=== PATIENT | male | born 1950 | race Caucasian/White ===

== ENCOUNTER 2017-06-29 10:15 | Inpatient (IN) | payer MEDICARE, OTHER, SELFPAY ==
[2017-06-14 11:34] VITALS: BP 124/73; PULSE 67; RESP 16; TEMP 36.4; O2SAT 95; BMI 36.0
--- NOTE | 2017-06-14 11:49 | SDCEKG_ITS ---
Test Reason : Blood Pressure : / mmHG Vent. Rate : 065 BPM Atrial Rate : 065 BPM P-R Int : 154 ms QRS Dur : 100 ms QT Int : 392 ms P-R-T Axes : 015 -09 039 degrees QTc Int : 407 ms Normal sinus rhythm Normal ECG Confirmed by ALLAN HOOVER, MANNY ([id number]), business editor JULIETA DENG ([id number] on 06/15/2017 10:50:53 AM Referred By: Noah Lynn Confirmed By:MANNY LEMUS MD
[2017-06-14 12:20] LABS: Absolute Neutrophil Count 4.9 X10^3/uL (2.0-7.7); Basophil# 0.04 X10^3/uL; Basophil% 0.5 % (0-1); Eosinophil# 0.21 X10^3/uL; Eosinophils% 2.6 % (0-5); Hematocrit 42.7 % (40-54); Hemoglobin 14.7 g/dl (13.0-16.5); Lymphocyte % 29.7 % (19-41); Mean Corp Hgb Conc 34.4 g/gl (32-36); Mean Corpuscular Hgb 31.4 pg (27.0-32.0); Mean Corpuscular Volume 91.2 fL (80-94); Mean Platelet Vol. 8.9 fl (6.2-12.0); Monocyte# 0.54 X10^3/uL; Monocyte% 6.7 % (0-10); Neutrophil # 4.86 X10^3/uL (2.7-7.7); Platelet Count 277 K/mm3 (150-450); Red Blood Count 4.68 M/mm3 (4.6-6.2); White Blood Count 8.1 K/mm3 (4.4-11.0)
[2017-06-14 12:24] LABS: POSITIVE COUNT NO; POSITIVE DIFFERENTIAL NO; POSITIVE MORPHOLOGY NO
[2017-06-14 12:34] LABS: Anion Gap 10 (5-15); BUN 21 mg/dL (7-18); BUN/Creat Ratio 18.8 RATIO (10-20); Calcium,Total 9.5 mg/dL (8.5-10.1); Chloride 104 mmol/L (98-107); Creatinine, Serum 1.12 mg/dL (0.70-1.30); EST Glomerular Filtration Rate 70 mL/min (>60); Est Glom Filt Rate - Afr Amer 84 mL/min (>60); Estimated Creatinine Clearance 65.76 ml/min; Glucose 152 mg/dL (70-110); Potassium 4.4 mmol/L (3.5-5.1); Sodium Level 139 mmol/L (136-145)
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
[2017-06-14 12:49] LABS: Hemoglobin A1c 6.7 % (4.2-6.3)
--- NOTE | 2017-06-23 11:03 | CASEMGMT ---
Social Work Note Placed call to the pt to discuss discharge plan. Introduced self and role at [facility]. The pt reports that he lives with his in a one-story home with 2 entry steps. DME consists of a walker and cane, and pt winkler snot anticipate additional DME needs. Intends on participating in outpatient therapy at [facility] and will have transportation. FARHANA CM to f/u with post-operatively. Plan: Outpatient therapy at [facility]. Krista Dhillon MSW COLLECTIONS AND ARCHIVES DIRECTOR
[2017-06-29] VITALS (9 sets, daily range): BP systolic 104–157; BP diastolic 43–76; PULSE 56–75; RESP 15–18; TEMP 35.9–37.1; O2SAT 93–99; BMI 36.0; BMI 36.4
[2017-06-29] MEDS: Celecoxib 200 MG Capsule 400 MG PO (11:01)
[2017-06-29] MEDS: Acetaminophen 500 MG Tablet 1000 MG PO ×3 (11:01→21:52)
[2017-06-29] MEDS: oxyCODONE HCl Cr 10 MG Tablet PO (11:01)
[2017-06-29 11:11] LABS: Bedside Glucose 168 mg/dL (70-110)
[2017-06-29] MEDS: Scopolamine 1mg/72hr Patch 1 PATCH TD (11:15)
[2017-06-29] MEDS: Cefazolin 2 GM in 0.9% Normal Saline 100 ML IV (11:42)
--- NOTE | 2017-06-29 11:47 | RAD_ITS ---
STUDY: X-RAY - PELVIS AND LEFT HIP REASON FOR EXAM: Male, 66 years old. Postop TECHNIQUE: Radiological exam, hip, unilateral, with pelvis when performed; 2 or 3 views. COMPARISON: None. FINDINGS: There is a new left hip arthroplasty with a satisfactory appearance. Normal appearance of the right hip arthroplasty. Normal visualized pelvis. IMPRESSION: Satisfactory appearance of a new left hip arthroplasty. Electronically Signed: Toni Michaels MD at 16:07 EST , Service support , RAD/Hip Min 2 Views (Portable)
--- NOTE | 2017-06-29 14:59 | OP.PCM_ITS ---
Report of Operation Date of Procedure: 06/29/17 Pre-Operative Diagnosis: Left hip posttraumatic osteoarthritis Post-Operative Diagnosis: Left hip posttraumatic osteoarthritis Surgery/Procedure Performed:: Left hip conversion of previous hip surgery to total hip arthroplasty Description of Surgical Findings:: Stable hip with equal leg lengths demolition expert: Duong Carvajal demolition expert: George Winter Type of Anesthesia:: Spinal Anesthesiologist: Rei Ni Special Medications: 2 g Ancef, 1 g TXA at incision, 1 g TXA closure, 10 mg Decadron, joint cocktail (5 mg Duramorph, 30 mL of 0.5% Ropivicaine, 1000 units of epinephrine, 30 mg of Toradol) Specimen's removed: Bony cuts Estimated Blood Loss (mL): 750 Fluids Replaced: 3 L crystalloid Description of Procedure: Findings: Adequate reduction with stability of the hip and equal leg lengths measured intraoperatively. Components used: 1. [place] secure fit advanced size 8 stem, 127 neck angle 2. [place] trident 56 mm acetabular shell 3. [place] MDM liner, alpha code F 4. [place] Biolox delta 28 mm, 4 mm neck femoral head 5. [place] X3 MDM liner Brief history operative indications: 66 male with previous history of left hip fracture fixed with plates and screws. Patient had subsequent leg length discrepancy and radiographs consistent with severe posttraumatic osteoarthritis with complete loss of joint space, subchondral sclerosis and large osteophyte formation. After failing conservative measures wished to proceed with left total hip replacement. risks and benefits were discussed with the patient which included but were not limited to blood loss, DVTs, PEs, infection, neurovascular damage, and dislocation. In light of all this patient did agree to proceed with a total hip arthroplasty. Procedure: On the date of procedure the patient's L hip was marked in the preoperative area. Patient was then taken back to the operating room where anesthesia assumed control of the C-spine and airway and administered anesthetic. Patient was transferred to the operating table and placed in the lateral decubitus position with the affected hip up. The patient was secured in the bed with the lateral positioners and leg lengths were checked. The L lower extremity was then prepped out in a sterile fashion using chlorhexidine while the surgeon scrubbed. Upon reentering the room the L lower extremity was draped in the standard orthopedic fashion and the incision was marked. A timeout was called and everyone agreed upon the side, the site, the procedure be performed, antibiotics given, and patient's identity. At this time incision was made through skin, subcutaneous tissue, and fat down to fascia. The fascia was then incised and a Charley retractor was placed. At this time we extended our excision distally in order to remove the hardware. The 2 screws were removed from the plate distal screw had broken off. We were unable to remove the lag screw so at this time we directed our attention towards the proximal femur. The soft tissue was then cleared from the posterior external rotators and the piriformis was identified. Piriformis was taken down. The remainder of the short external rotators were taken down. Capsulotomy was made and the posterior capsule was tagged. The retractors were then placed inside the capsule. The femoral neck was identified and a cleanup cut was made, and distal to the screw. We then used an osteotome to piecemeal the femoral head eventually removing the screw and head from the inside. At this time a bone tamp was used to back the lateral plate from the femoral neck. Attention was then directed towards the distal screw that had broken where trephine was used to clear the lateral bone and a conical screw removal tool was used to back the screw out. All hardware was now removed. At this time a power corkscrew was used to remove the femoral head. At this time all bony debris was removed from the acetabulum. Attention was then turned to the femur where the proximal femur was appropriately exposed using a manley retractor. The dry box operator was used to remove the lateral bone. Canal finder was used to verify the canal. Proximal femur was sequentially reamed to an 8 with conical reamers. The proximal femoral femur was then sequentially broached to a size 8 broach which had an appropriate fit. The broach was left in place. Our attention was then directed to the acetabulum and the anterior retractor was placed and a Gelpi was used to retract the posterior capsule superiorly. All soft tissue debris was removed from the pulvinar and labrum of the joint. The acetabulum was then sequentially reamed to 55 millimeters. At this time a and 56 mm [place] titanium cup was opened and impacted into place. Once it was securely fastened our attention was again turned towards the femur and the high offset neck was chosen and a 28 mm head with +4 mm offset was trialed. The hip was properly reduced using traction and external rotation. Stability was checked with the appropriate amount of shuck, no impingement with external rotation, and stable at 90? flexion and 45? internal rotation. Leg lengths were checked and were found to be equal on the table. Once the hip was determined to be stable the trial components were dislocated. And the acetabular component was finally get into place once it was securely fastened down the MDM liner was placed and security was verified. The proximal femur was again exposed and the components were removed from the wound. The final components were verified and opened. The wound was copiously irrigated out with normal saline. The acetabulum was checked for any residual debris. The final components were placed and impacted. Traction and external rotation were again used to reduce the hip. After adequate reduction the hip remained stable with appropriate leg lengths. The wound was then copiously irrigated with normal saline once more, and hemostasis was obtained. The posterior capsule and piriformis were repaired through drill holes to the greater trochanter . Closure was then done using #1 Vicryl to close the fascia. A 2-0 Vicryl interrupted sutures were used to close the subcutaneous skin. Skin hugo were used for final skin closure. A sterile dressing was placed. Patient was awakened by anesthesia and transferred to the [facility]. Patient was then transferred to the PACU for recovery. Postoperative plan: Patient will get 24 hours postop antibiotics. Patient will get in-house physical therapy and will be weight-bear as tolerated. Patient will follow up in office in 2 weeks for a wound check and x-rays. During the course of the procedure the physician assistant reading teacher played a vital role. His intimate knowledge of my steps in the procedure aided in safe and expedient completion of the procedure. The PA played a vital rolls in positioning particularly in obtaining the appropriate positioning of the sacral bump. The PA was also vital in the retraction of soft tissues during the exposure and especially the femoral work as this is a vital part of the procedure to prevent complications and fractures. The PA was also vital and protecting soft tissues during times of bony cuts and reaming. He also played a vital role in closure with my direct supervision. The PA was also important during reduction and dislocation of the joint and trials intraoperatively. Dr Winter assisted in this case for evaluated and educational purposes only. Grafts/Implants Used: [place] - Complications none - Admit VTE Documentation VTE Present on Admission: No VTE Mechan Device Prophylaxis: SCD's, Thigh High EMILY Mcwilliams VTE Pharm Prophylaxis ordered?: Yes
[2017-06-29] MEDS: Lactated Ringers 1,000 ML 125 ML IV (15:32)
[2017-06-29 16:11] LABS: Bedside Glucose 213 mg/dL (70-110)
--- NOTE | 2017-06-29 17:13 | PCA ---
BIBI/RN IN WITH PT
[2017-06-29] MEDS: metFORMIN HCl 1,000 MG Tablet 1000 MG PO (17:48)
[2017-06-29] MEDS: Glucerna Shake 120 ML LIQUID PO (17:48)
[2017-06-29] MEDS: Cefazolin 1 GM/50 ML BAG IV (20:50)
--- NOTE | 2017-06-29 21:09 | PCM.CONS.GEN ---
Problem List (1) Essential hypertension Status: Chronic (2) DM2 (diabetes mellitus, type 2) Status: Chronic Qualifiers: Diabetes mellitus complication status: without complication Diabetes mellitus halfway insulin use: without halfway use Qualified Code(s): E11.9 - Type 2 diabetes mellitus without complications (3) CAD (coronary artery disease) Status: Chronic Qualifiers: Coronary Disease-Associated Artery/Lesion type: [place] artery [place] vs. transplanted heart: [place] heart Associated angina: without angina Qualified Code(s): I25.10 - Atherosclerotic heart disease of [place] coronary artery without angina pectoris Reason for Consult Date of Consultation: 06/29/17 Reason for Consultation: Medical management. History of Present Illness: Patient is a 66 years old male, who underwent left total hip surgery on 06/29/17. He has history of coronary artery disease with history of myocardial infarction about 6 years ago, DM II, and essential hypertension. Other than expected discomfort from surgery, he has no complains. Past Medical History Past Medical History (Chronic Problems): Chronic Problems Essential hypertension (Chronic) DM2 (diabetes mellitus, type 2) (Chronic) CAD (coronary artery disease) (Chronic) Allergies niacin [From Niaspan Extended-Release] Adverse Reaction (Verified 06/14/17 11:01) red face disposable stitches Allergy (Uncoded 06/14/17 11:01) skin blisters and drainage altace Adverse Reaction (Uncoded 06/14/17 11:01) cough Home Medications: Ambulatory Orders Medication Instructions Recorded Aspirin E.C. [Ecotrin] 81 mg PO DAILY@0800 06/14/17 Cyanocobalamin/FA/Pyridoxine 1 each PO QHS 06/14/17 [Folgard] Dextroamphetamine/Amphetamine 15 mg PO TID 06/14/17 [Dextroamp-Amphetamin 15 mg Tab] Gabapentin [Neurontin] 600 mg PO QHS 06/14/17 Hydrocodone/Acetaminophen [[place] 1 each PO BID 06/14/17 5-325 Tablet] Losartan Potassium [Cozaar] 100 mg PO DAILY 06/14/17 Meloxicam [Mobic] 7.5 mg PO PRN PRN 06/14/17 Metformin HCl 1,000 mg PO BID 06/14/17 Metoprolol Tartrate [Lopressor 100 mg PO QHS 06/14/17 (Beta Adolph)] [place]-3S/Dha/Epa/Fish Oil [[place]-3 1 each PO BID 06/14/17 Fish Oil 1,200 mg Sfgl] Omeprazole 20 mg PO DAILY 06/14/17 Pioglitazone [Actos] 30 mg PO DAILY 06/14/17 Sertraline HCl [Zoloft] 100 mg PO QHS 06/14/17 Simvastatin [Zocor] 20 mg PO QHS 06/14/17 Smoking Status: Never smoker - *Family History Maternal History Items: No pertinent history Review of Systems Comment: ROS: In general: Patient has been in good health, denied of any constitutional symptoms, such as weight loss, or gain, fever, chills, or night sweats. Patient denied of any profound fatigue. HEENT: Unremarkable. Patient denied of any dizziness, chronic headache, blurred vision, double vision, dry mouth, or nasal congestion. CV/respiratory: There is no exertional shortness of breath, chest pain, palpitation, wheezing, cough, claudication, cold feet, or peripheral edema. GI: Patient denied any abdominal pain, nausea, vomiting, diarrhea, constipation, melena, or hematochezia. : Patient denied any significant urinary symptoms. Neurology: Unremarkable. There is no history of seizure as an adult. Psychological: Unremarkable. ?. Endocrine: Unremarkable. Musculoskeletal: Unremarkable. Objective: In general, patient is a well-nourished and developed adult. HEENT: Head is atraumatic, and normocephalic. Pupils are equal, round, and reactive to light and accommodations. Neck is supple. There is no lymphadenopathy, or thyromegaly. Oral mucosa is pink, and moist. There are no lesions. Heart: Auscultation is normal with regular rhythm and rate. There is no extra heart sounds, or murmurs. S1 and S2 are present. Point of maximal impulse is not displaced. Lungs: Lungs are clear to auscultation bilaterally. There is no wheezing, or crackles. Abdomen: Abdominal wall is non-tender, and non-distended. There is no palpable mass or organomegaly. Normoactive bowel sounds are present. Extremities: There is no cyanosis or clubbing. Peripheral pulses are palpable. There is no edema. Skin: There are no any skin discoloration or lesions. Neurological: CN II - XII are intact. Sensory and motor functions are grossly normal with no obvious deficit. Cerebellar functions are within normal range. Gait was not tested. - Physical Exam Vital Signs Temp Pulse Resp BP Pulse Ox 98.8 F 66 18 134/74 H 96 06/29/17 18:51 06/29/17 18:51 06/29/17 20:39 06/29/17 18:51 06/29/17 20:39 Oxygen Delivery Method Room Air Weight: 246 lb 14.684 oz Body Mass Index (BMI) 36.4 Finger Stick Blood Glucose 213 Intake and Output for Last 24 Hours 06/27/17 06/28/17 06/29/17 23:59 23:59 23:59 Intake Total 3800 / 3800 Balance 3800 / 3800 POC Glucose 06/29/17 06/29/17 16:03 10:49 POC Glucose 213 H 168 H Diagnostic Data Hip X-Ray 06/29/17 11:47 Assessment/Plan Patient is a 66 years old male, who underwent left total hip surgery on 06/29/17. He has history of coronary artery disease with history of myocardial infarction about 6 years ago, DM II, and essential hypertension. Other than expected discomfort from surgery, he has no complains. #1 DM II. Hold oral hypoglycemic agent, metformin and Acots during the hospital stay. Add sliding scale insulin. #2 Essential hypertension. Continue current medications. Blood pressure is adequate. #3 Coronary artery disease. He is asymptomatic. Continue current medications. He is allergic to aspirin. Thank you for consultation. We will follow with you. Code Visit Office Visits / Consults: [id number] IP Consult L2
--- NOTE | 2017-06-29 21:15 | CON.PCM_ITS ---
Problem List (1) Essential hypertension Status: Chronic (2) DM2 (diabetes mellitus, type 2) Status: Chronic Qualifiers: Diabetes mellitus complication status: without complication Diabetes mellitus detention insulin use: without long term care social worker use Qualified Code(s): E11.9 - Type 2 diabetes mellitus without complications (3) CAD (coronary artery disease) Status: Chronic Qualifiers: Coronary Disease-Associated Artery/Lesion type: [place] artery [place] vs. transplanted heart: [place] heart Associated angina: without angina Qualified Code(s): I25.10 - Atherosclerotic heart disease of [place] coronary artery without angina pectoris Reason for Consult Date of Consultation: 06/29/17 Reason for Consultation: Medical management. History of Present Illness: Patient is a 66 years old male, who underwent left total hip surgery on 06/29/17. He has history of coronary artery disease with history of myocardial infarction about 6 years ago, DM II, and essential hypertension. Other than expected discomfort from surgery, he has no complains. Past Medical History Past Medical History (Chronic Problems): Chronic Problems Essential hypertension (Chronic) DM2 (diabetes mellitus, type 2) (Chronic) CAD (coronary artery disease) (Chronic) Allergies niacin [From Niaspan Extended-Release] Adverse Reaction (Verified 06/14/17 11:01 ) red face disposable stitches Allergy (Uncoded 06/14/17 11:01) skin blisters and drainage altace Adverse Reaction (Uncoded 06/14/17 11:01) cough Home Medications: Ambulatory Orders Medication Instructions Recorded Aspirin E.C. [Ecotrin] 81 mg PO DAILY@0800 06/14/17 Cyanocobalamin/FA/Pyridoxine 1 each PO QHS 06/14/17 [Folgard] Dextroamphetamine/Amphetamine 15 mg PO TID 06/14/17 [Dextroamp-Amphetamin 15 mg Tab] Gabapentin [Neurontin] 600 mg PO QHS 06/14/17 Hydrocodone/Acetaminophen [[place] 1 each PO BID 06/14/17 5-325 Tablet] Losartan Potassium [Cozaar] 100 mg PO DAILY 06/14/17 Meloxicam [Mobic] 7.5 mg PO PRN PRN 06/14/17 Metformin HCl 1,000 mg PO BID 06/14/17 Metoprolol Tartrate [Lopressor 100 mg PO QHS 06/14/17 (Beta Adolph)] [place]-3S/Dha/Epa/Fish Oil [[place]-3 1 each PO BID 06/14/17 Fish Oil 1,200 mg Sfgl] Omeprazole 20 mg PO DAILY 06/14/17 Pioglitazone [Actos] 30 mg PO DAILY 06/14/17 Sertraline HCl [Zoloft] 100 mg PO QHS 06/14/17 Simvastatin [Zocor] 20 mg PO QHS 06/14/17 Smoking Status: Never smoker - *Family History Maternal History Items: No pertinent history Review of Systems Comment: ROS: In general: Patient has been in good health, denied of any constitutional symptoms, such as weight loss, or gain, fever, chills, or night sweats. Patient denied of any profound fatigue. HEENT: Unremarkable. Patient denied of any dizziness, chronic headache, blurred vision, double vision, dry mouth, or nasal congestion. CV/respiratory: There is no exertional shortness of breath, chest pain, palpitation, wheezing, cough, claudication, cold feet, or peripheral edema. GI: Patient denied any abdominal pain, nausea, vomiting, diarrhea, constipation, melena, or hematochezia. : Patient denied any significant urinary symptoms. Neurology: Unremarkable. There is no history of seizure as an adult. Psychological: Unremarkable. ?. Endocrine: Unremarkable. Musculoskeletal: Unremarkable. Objective: In general, patient is a well-nourished and developed adult. HEENT: Head is atraumatic, and normocephalic. Pupils are equal, round, and reactive to light and accommodations. Neck is supple. There is no lymphadenopathy, or thyromegaly. Oral mucosa is pink, and moist. There are no lesions. Heart: Auscultation is normal with regular rhythm and rate. There is no extra heart sounds, or murmurs. S1 and S2 are present. Point of maximal impulse is not displaced. Lungs: Lungs are clear to auscultation bilaterally. There is no wheezing, or crackles. Abdomen: Abdominal wall is non-tender, and non-distended. There is no palpable mass or organomegaly. Normoactive bowel sounds are present. Extremities: There is no cyanosis or clubbing. Peripheral pulses are palpable. There is no edema. Skin: There are no any skin discoloration or lesions. Neurological: CN II - XII are intact. Sensory and motor functions are grossly normal with no obvious deficit. Cerebellar functions are within normal range. Gait was not tested. - Physical Exam Vital Signs Temp Pulse Resp BP Pulse Ox 98.8 F 66 18 134/74 H 96 06/29/17 18:51 06/29/17 18:51 06/29/17 20:39 06/29/17 18:51 06/29/17 20:39 Oxygen Delivery Method Room Air Weight: 246 lb 14.684 oz Body Mass Index (BMI) 36.4 Finger Stick Blood Glucose 213 Intake and Output for Last 24 Hours 06/27/17 06/28/17 06/29/17 23:59 23:59 23:59 Intake Total 3800 / 3800 Balance 3800 / 3800 POC Glucose 06/29/17 06/29/17 16:03 10:49 POC Glucose 213 H 168 H Diagnostic Data Hip X-Ray 06/29/17 11:47 Assessment/Plan Patient is a 66 years old male, who underwent left total hip surgery on 06/29/17. He has history of coronary artery disease with history of myocardial infarction about 6 years ago, DM II, and essential hypertension. Other than expected discomfort from surgery, he has no complains. #1 DM II. Hold oral hypoglycemic agent, metformin and Acots during the hospital stay. Add sliding scale insulin. #2 Essential hypertension. Continue current medications. Blood pressure is adequate. #3 Coronary artery disease. He is asymptomatic. Continue current medications. He is allergic to aspirin. Thank you for consultation. We will follow with you. Code Visit Office Visits / Consults: [id number] IP Consult L2
[2017-06-29] MEDS: Ketorolac 15 MG/ML Vial IV (21:51)
[2017-06-29] MEDS: Senna/Docusate Sodium 1 Tablet 2 TABLET PO (21:51)
[2017-06-29] MEDS: Sertraline 100 MG Tablet PO (21:51)
[2017-06-29] MEDS: Gabapentin 300 MG Capsule 600 MG PO (21:52)
[2017-06-29] MEDS: Atorvastatin Calcium 10 MG Tablet PO (21:52)
[2017-06-29] MEDS: oxyCODONE 5 MG Tablet PO (21:52)
[2017-06-29 22:21] LABS: Bedside Glucose 217 mg/dL (70-110)
[2017-06-30] MEDS: Lactated Ringers 1,000 ML 125 ML IV (00:47)
[2017-06-30] MEDS: Cefazolin 1 GM/50 ML BAG IV (04:36)
[2017-06-30 04:59] VITALS: BP 140/73; PULSE 66; RESP 18; TEMP 36.6; O2SAT 98
[2017-06-30 05:34] LABS: Hematocrit 30.1 % (40-54); Hemoglobin 10.5 g/dl (13.0-16.5); Mean Corp Hgb Conc 34.9 g/gl (32-36); Mean Corpuscular Hgb 31.9 pg (27.0-32.0); Mean Corpuscular Volume 91.5 fL (80-94); Mean Platelet Vol. 8.7 fl (6.2-12.0); Platelet Count 276 K/mm3 (150-450); RBC Distribution Width CV 12.8 % (11.6-14.6); RBC Distribution Width SD 41.1 fl (35.1-43.9); Red Blood Count 3.29 M/mm3 (4.6-6.2); White Blood Count 13.9 K/mm3 (4.4-11.0)
[2017-06-30 05:36] LABS: Scan Indicated on CBC? Y/N NO
[2017-06-30 05:50] LABS: Anion Gap 9 (5-15); BUN 18 mg/dL (7-18); BUN/Creat Ratio 15.7 RATIO (10-20); Calcium,Total 8.4 mg/dL (8.5-10.1); Chloride 103 mmol/L (98-107); Creatinine, Serum 1.15 mg/dL (0.70-1.30); EST Glomerular Filtration Rate 68 mL/min (>60); Est Glom Filt Rate - Afr Amer 82 mL/min (>60); Estimated Creatinine Clearance 64.04 ml/min; Glucose 208 mg/dL (74-106); Potassium 4.2 mmol/L (3.5-5.1); Sodium Level 137 mmol/L (136-145)
--- NOTE | 2017-06-30 06:37 | PN.ORTHO_ITS ---
Subjective: The patient was sitting in bed upon examination. Patient denies any chest pain , shortness of breath, dizziness, lightheadedness, nausea or vomiting, or calf pain. No adverse overnight events. Patient does complain of pain in the left hip. Objective: Vital signs stable and afebrile. Patient is able to plantarflex and dorsiflex actively. Sensation is intact to light touch to saphenous, sural, superficial and deep peroneal, and tibial distribution. Dressing is clean dry and intact. There is some mild erythema to the distal one third posterior aspect of dressing on the left hip Negative Homans bilaterally, negative signs and symptoms of DVT. - Physical Exam General: Alert, Oriented x3, Cooperative, No apparent distress Vital Signs Temp Pulse Resp BP Pulse Ox 97.8 F 66 18 140/73 H 98 06/30/17 04:59 06/30/17 04:59 06/30/17 04:59 06/30/17 04:59 06/30/17 04:59 Oxygen Delivery Method Room Air Weight: 112 kg Body Mass Index (BMI) 36.4 Finger Stick Blood Glucose 213 Intake and Output for Last 24 Hours 06/28/17 06/29/17 06/30/17 23:59 23:59 23:59 Intake Total 3800 / 3800 1796 / 1796 Output Total 700 / 700 Balance 3800 / 3800 1096 / 1096 Laboratory Tests Past 24 Hrs 06/30/17 06/30/17 05:06 05:06 WBC 13.9 H RBC 3.29 L Hgb 10.5 L Hct 30.1 L MCV 91.5 MCH 31.9 MCHC 34.9 RDW 12.8 RDW Differential 41.1 Plt Count 276 MPV 8.7 Sodium 137 Potassium 4.2 Chloride 103 Carbon Dioxide 25.0 Anion Gap 9 BUN 18 Creatinine 1.15 Estim Creat Clear Calc 64.04 Est GFR (MDRD) Af Amer 82 Est GFR (MDRD) Non-Af 68 BUN/Creatinine Ratio 15.7 Glucose 208 H Calcium 8.4 L POC Glucose 06/29/17 06/29/17 06/29/17 21:50 16:03 10:49 POC Glucose 217 H 213 H 168 H Assessment/Plan 1. S/P left hip conversion of previous hip surgery to a left total hip arthroplasty POD #1 2. Continue Pain Medications: Tylenol and OxyIR 3. DVT Prophylaxis: Xarelto 4. PT/OT: Weightbearing as tolerated 5. H & H: 10.5/30.1, asymptomatic 6. Leukocytosis: Currently 13.9, afebrile. Patient did receive Decadron intraoperatively 7. Encouraged Incentive Spirometry 8. Disposition: Plan will be for discharge home tomorrow if patient tolerates physical therapy and pain is controlled.
[2017-06-30] MEDS: Acetaminophen 500 MG Tablet 1000 MG PO ×3 (06:49→21:26)
[2017-06-30 07:06] LABS: Bedside Glucose 182 mg/dL (70-110)
[2017-06-30 08:05] VITALS: BP 116/60; PULSE 69; RESP 16; TEMP 36.6; O2SAT 98
[2017-06-30] MEDS: oxyCODONE 5 MG Tablet PO ×2 (08:21→13:01)
[2017-06-30] MEDS: Famotidine 20 MG Tablet PO (08:21)
[2017-06-30] MEDS: Glucerna Shake 120 ML LIQUID PO ×3 (08:21→16:41)
[2017-06-30] MEDS: Pantoprazole Sodium 20 MG Tablet PO (08:21)
[2017-06-30] MEDS: Senna/Docusate Sodium 1 Tablet 2 TABLET PO ×2 (08:24→21:26)
--- NOTE | 2017-06-30 11:11 | PCA ---
jordon/rn in with pt
[2017-06-30 11:13] VITALS: BP 125/65; PULSE 79
[2017-06-30 11:16] LABS: Bedside Glucose 191 mg/dL (70-110)
--- NOTE | 2017-06-30 13:48 | CASEMGMT ---
FARHANA ENCARNACION Face to Face with patient for initial transition planning/care coordination assessment. RN ALYSHA introduced self and role at [facility]. Patient sitting in chair, alert and oriented. Patient willing to participate in assessment and is able to answer all questions appropriately. Care providers, pharmacy, and demographics verified. See link attached. Patient wishes to discharge home and is setup with [facility] for outpatient therapy with spouse providing transportation. Patient states he has no further needs or concerns at this time. CM to follow for discharge planning needs that may arise. Disposition Plan: Patient to discharge home with outpatient therapy, family support, and follow-up plans in place.
--- NOTE | 2017-06-30 14:41 | PCA ---
pt in therapy
[2017-06-30] MEDS: Ketorolac 15 MG/ML Vial IV (15:10)
[2017-06-30] MEDS: 0.9% NaCl Peripheral Flush Adult/Peds IV (15:10)
[2017-06-30 15:15] VITALS: BP 132/79; PULSE 89; RESP 14; TEMP 36.9; O2SAT 98
[2017-06-30 16:51] LABS: Bedside Glucose 198 mg/dL (70-110)
--- NOTE | 2017-06-30 17:38 | NURSING ---
scop patch in place behind patients right ear
--- NOTE | 2017-06-30 20:14 | PCM.PN.BLA ---
Progress Note Patient was seen and examined earlier in the day while in the lunch room. He has no complaints. He denies chest pain, shortness of breath, palpitations. Vein is well controlled. Vital signs are stable and his blood pressure is controlled. He is 98% saturated on room air and is not tachypneic. He has no conversational dyspnea. All lab was personally reviewed. Hemoglobin is 10.5 today which is mildly decreased from hemoglobin on 06/14/2017. BMP is unremarkable. Blood sugars are mildly increased but not unexpected with the stress of surgery and pain. Hemoglobin A1c on 06/14/2017 was 6.7% and this is excellent control. Alert and oriented ?3, no apparent distress Lungs-clear to auscultation throughout Heart-regular rate and rhythm, no gallop Abdomen-soft, nontender, nondistended, bowel sounds present No calf tenderness No rashes Impressions 1. POD #1 S/P left total hip replacement on 06/29/2017 2. Diabetes mellitus type [id number] with a hemoglobin A1c of 6.7% 3. Hypertension-controlled 4. Morbid obesity 5. History of coronary artery disease 6. TOMY 7. Narcolepsy -on dextroamphetamine 3 times daily continue current care. will follow along while he is in the hospital Code Visit Inpatient E&M: 23147 Subs Hosp L2
--- NOTE | 2017-06-30 20:22 | PN_ITS ---
Progress Note Patient was seen and examined earlier in the day while in the lunch room. He has no complaints. He denies chest pain, shortness of breath, palpitations. Vein is well controlled. Vital signs are stable and his blood pressure is controlled. He is 98% saturated on room air and is not tachypneic. He has no conversational dyspnea. All lab was personally reviewed. Hemoglobin is 10.5 today which is mildly decreased from hemoglobin on 06/14/2017. BMP is unremarkable. Blood sugars are mildly increased but not unexpected with the stress of surgery and pain. Hemoglobin A1c on 06/14/2017 was 6.7% and this is excellent control. Alert and oriented ?3, no apparent distress Lungs-clear to auscultation throughout Heart-regular rate and rhythm, no gallop Abdomen-soft, nontender, nondistended, bowel sounds present No calf tenderness No rashes Impressions 1. POD #1 S/P left total hip replacement on 06/29/2017 2. Diabetes mellitus type [id number] with a hemoglobin A1c of 6.7% 3. Hypertension-controlled 4. Morbid obesity 5. History of coronary artery disease 6. TOMY 7. Narcolepsy -on dextroamphetamine 3 times daily continue current care. will follow along while he is in the hospital Code Visit Inpatient E&M: 14178 Subs Hosp L2
[2017-06-30 21:19] VITALS: BP 122/66; PULSE 72; RESP 18; TEMP 37.1; O2SAT 96
[2017-06-30 21:26] VITALS: PULSE 72
[2017-06-30] MEDS: Atorvastatin Calcium 10 MG Tablet PO (21:26)
[2017-06-30] MEDS: Metoprolol(XL)Succ 100 MG Tablet PO (21:26)
[2017-06-30] MEDS: Gabapentin 300 MG Capsule 600 MG PO (21:26)
[2017-06-30] MEDS: Sertraline 100 MG Tablet PO (21:26)
[2017-06-30 23:01] LABS: Bedside Glucose 219 mg/dL (70-110)
[2017-07-01] MEDS: oxyCODONE 5 MG Tablet PO ×3 (00:28→12:22)
[2017-07-01 05:34] VITALS: BP 154/87; PULSE 88; RESP 18; TEMP 37.3; O2SAT 94
[2017-07-01] MEDS: Acetaminophen 500 MG Tablet 1000 MG PO ×2 (05:48→13:24)
[2017-07-01] MEDS: Rivaroxaban 10 MG Tablet PO (05:49)
[2017-07-01 06:37] LABS: Hematocrit 28.5 % (40-54); Hemoglobin 9.8 g/dl (13.0-16.5); Mean Corp Hgb Conc 34.4 g/gl (32-36); Mean Corpuscular Volume 93.1 fL (80-94); Mean Platelet Vol. 8.7 fl (6.2-12.0); Platelet Count 235 K/mm3 (150-450); Red Blood Count 3.06 M/mm3 (4.6-6.2); White Blood Count 11.8 K/mm3 (4.4-11.0)
[2017-07-01 06:46] LABS: Scan Indicated on CBC? Y/N NO
[2017-07-01 06:56] LABS: Bedside Glucose 168 mg/dL (70-110)
[2017-07-01] MEDS: Glucerna Shake 120 ML LIQUID PO ×2 (07:36→11:17)
[2017-07-01] MEDS: Senna/Docusate Sodium 1 Tablet 2 TABLET PO (07:37)
[2017-07-01] MEDS: Pantoprazole Sodium 20 MG Tablet PO (07:38)
[2017-07-01] MEDS: Famotidine 20 MG Tablet PO (07:38)
--- NOTE | 2017-07-01 09:47 | PN.ORTHO_ITS ---
Subjective: The patient was sitting in bedside chair upon examination. Patient denies any chest pain, shortness of breath, dizziness, lightheadedness, nausea or vomiting , or calf pain. Pain is controlled on medications. No adverse overnight events. Patient has progressed well, wishes to go home today. Overall doing well, does report some soreness in the left hip after therapy but controlled on medications. Objective: Vital signs stable and afebrile. Patient is able to plantarflex and dorsiflex actively. Sensation is intact to light touch to saphenous, sural, superficial and deep peroneal, and tibial distribution. Dressing is clean dry and intact. Negative Homans bilaterally, negative signs and symptoms of DVT. - Physical Exam General: Alert, Oriented x3, No apparent distress Vital Signs Temp Pulse Resp BP Pulse Ox 99.2 F H 88 18 154/87 H 94 07/01/17 05:34 07/01/17 05:34 07/01/17 05:34 07/01/17 05:34 07/01/17 05:34 Oxygen Delivery Method Room Air Weight: 112 kg Body Mass Index (BMI) 36.4 Finger Stick Blood Glucose 213 Intake and Output for Last 24 Hours 06/29/17 06/30/17 07/01/17 23:59 23:59 23:59 Intake Total 3800 / 3800 4334 / 4334 800 / 800 Output Total 1999 / 1999 1300 / 1300 Balance 3800 / 3800 2334 / 2334 -500 / -500 Laboratory Tests Past 24 Hrs 07/01/17 05:55 WBC 11.8 H RBC 3.06 L Hgb 9.8 L Hct 28.5 L MCV 93.1 MCH 32.0 MCHC 34.4 RDW 13.0 RDW Differential 43.0 Plt Count 235 MPV 8.7 POC Glucose 07/01/17 06/30/17 06/30/17 06:52 21:23 16:36 POC Glucose 168 H 219 H 198 H 06/30/17 11:05 POC Glucose 191 H Assessment/Plan 1. S/P left hip conversion of previous hip surgery to a left total hip arthroplasty POD #2 2. Continue Pain Medications: Tylenol and OxyIR 3. DVT Prophylaxis: Xarelto 4. PT/OT: Weightbearing as tolerated 5. H & H: 9.8/28.5, asymptomatic 6. Leukocytosis: Currently 11.8 and trending down, afebrile. Patient did receive Decadron intraoperatively 7. Encouraged Incentive Spirometry 8. Disposition: Medically stable, plan is for discharge home this afternoon after physical therapy. Prescriptions will be E scribed to patient's outside pharmacy. Patient will follow-up per [facility] postop instructions.
--- NOTE | 2017-07-01 09:53 | PCM.DC.THR ---
Discharge Diet: 1800 Calorie Control Diet Discharge Activity: May Not Drive - while taking narcotic pain medications. May shower in (days): 1 - Turned dressing away from water Weight Bearing Status: Weight bearing as tolerated Additional Activity Instructions:: Wear elastic stockings for 2 weeks. DO NOT use alcohol with narcotic pain medication. DO NOT make important decisions while taking narcotic medication. If you have problems with taking your medication (rash, itching, nausea, etc.) call the office at once. Call your doctor if your incision/area has: Increased Pain/ Swelling, Increased Redness, Foul Smelling Discharge Call your doctor if you observe: Fever of 101 or Higher Remove Dressing in (days):: 3 - Remove on June 03, 2017 Additional Instructions: Do not take aspirin 81 mg, fish oil, and meloxicam while taking the Xarelto next Follow [facility] postop instructions Allergies/Adverse Reactions: Allergies niacin [From Niaspan Extended-Release] Adverse Reaction (Verified 06/14/17 11:01) red face disposable stitches Allergy (Uncoded 06/14/17 11:01) skin blisters and drainage altace Adverse Reaction (Uncoded 06/14/17 11:01) cough Medications to take at Discharge Cyanocobalamin/FA/Pyridoxine [Folgard] 1 each PO QHS 06/14/17 Dextroamphetamine/Amphetamine [Dextroamp-Amphetamin 15 mg Tab] 15 mg PO TID 06/14/17 Gabapentin [Neurontin] 600 mg PO QHS 06/14/17 Losartan Potassium [Cozaar] 100 mg PO DAILY 06/14/17 Metformin HCl 1,000 mg PO BID 06/14/17 Omeprazole 20 mg PO DAILY 06/14/17 Pioglitazone [Actos] 30 mg PO DAILY 06/14/17 Sertraline HCl [Zoloft] 100 mg PO QHS 06/14/17 Simvastatin [Zocor] 20 mg PO QHS 06/14/17 Metoprolol Succinate [Toprol Xl] 100 mg PO QHS 06/30/17 Acetaminophen [Tylenol] 1,000 mg PO Q8 #90 tab 07/01/17 Oxycodone [Oxyir] 5 - 10 mg PO Q4H PRN PRN 7 Days #80 tablet 07/01/17 Rivaroxaban [Xarelto] 10 mg PO DAILY@0600 #11 tab 07/01/17 Senna/Docusate Sodium [Senokot-S] 2 tab PO BID #20 tab 07/01/17 The following prescriptions were given: Oxycodone [Oxyir] 5 - 10 mg PO Q4H PRN PRN 7 Days #80 tablet PRN Reason: Mod-Severe Pain (4-02/23) Acetaminophen [Tylenol] 1,000 mg PO Q8 #90 tab Rivaroxaban [Xarelto] 10 mg PO DAILY@0600 #11 tab Senna/Docusate Sodium [Senokot-S] 2 tab PO BID #20 tab Primary Care Physician: Desiree Spears [Primary Care Provider] - Please Follow Up With: [facility] When: 07/05/17 @ 9:30 am Please Follow Up With: Duong Carvajal PA-C When: 07/12/17 @ 9:30 am
[2017-07-01 10:22] VITALS: BP 138/77; PULSE 93; RESP 18; TEMP 37.3; O2SAT 96
[2017-07-01] MEDS: Losartan Potassium 100 MG Tablet PO (10:25)
[2017-07-01 11:15] LABS: Bedside Glucose 189 mg/dL (70-110)
[2017-07-01 13:21] VITALS: BP 133/68; PULSE 94; RESP 18; TEMP 37.4; O2SAT 94
== END 2017-07-01 16:06 | disposition home or self-care (01) | DRG 470 ==
LOC: ACINP 10:17 → MS3 12:04
PROVIDERS: Admitting Provider Specialist; Family Provider General Practice; PCP General Practice; Visit Provider Internal Medicine
PROC: 0SRB04A Replacement of Left Hip Joint with Ceramic on Polyethylene Synthetic Substitute, Uncemented, Open Approach (ICD-10-PCS; CPT 27134; principal; 2017-06-29 12:35)
DX: M16.52 Unilateral post-traumatic osteoarthritis, left hip (principal); T84.115A Breakdown (mechanical) of internal fixation device of left femur, initial encounter; E66.01 Morbid (severe) obesity due to excess calories; Z96.641 Presence of right artificial hip joint; Z68.36 Body mass index [BMI] 36.0-36.9, adult; E11.9 Type 2 diabetes mellitus without complications; S72.002S Fracture of unspecified part of neck of left femur, sequela; V89.2XXS Person injured in unspecified motor-vehicle accident, traffic, sequela; I10 Essential (primary) hypertension; I25.10 Atherosclerotic heart disease of native coronary artery without angina pectoris; Z95.5 Presence of coronary angioplasty implant and graft; I25.2 Old myocardial infarction; Z79.899 Other long term (current) drug therapy; G47.419 Narcolepsy without cataplexy; Z79.84 Long term (current) use of oral hypoglycemic drugs; Z88.6 Allergy status to analgesic agent; G47.33 Obstructive sleep apnea (adult) (pediatric)
CPT/HCPCS: 36415; 73502; 80048; 82962; 83036; 85025; 85027; 87081; 93005; 97110; 97116; 97162; 97166; 97530; 97535; 99251; J7120; A4216; G0463; J3490

== ENCOUNTER → 2019-04-03 12:18 | Outpatient (CLI) | payer MEDICARE, OTHER, SELFPAY ==
[2017-06-29 16:52] VITALS: BMI 36.4
== END ==
PROVIDERS: Family Provider General Practice; PCP General Practice; Referring Provider Internal Medicine Pulmonary Disease; Visit Provider Internal Medicine Pulmonary Disease
DX: J40 Bronchitis, not specified as acute or chronic (principal)
CPT/HCPCS: 87070; 87205